=== PATIENT | male | born 1990 | race African-American/Black ===

== ENCOUNTER 2016-02-29 22:21 | Emergency (ER) | payer OTHER, SELFPAY ==
[2016-02-29] MEDS ORDERED: Lorazepam 2 MG/ML VIAL ONE (22:30)
--- NOTE | 2016-02-29 23:03 | ERRECORD ---
[facility] EMERGENCY RECORD HPI ANXIETY (22:30 [facility]) CHIEF COMPLAINT: Patient presents for evaluation of anxiety. HISTORIAN: History provided by patient, anxiety after being arrested. pt will be calm, then hyperventilate when spoken to. LOCATION: Symptoms are generalized. QUALITY: Patient is alert and oriented to person, place and time, Rajeev coma score is 15. SEVERITY: Maximum severity of symptoms mild, Currently symptoms are mild, Maximum severity of pain rated as 10/10, Current severity of pain rated as 10/10, no visible trauma or injury. TIME COURSE: Sudden onset of symptoms, just prior to arrival, Symptoms are improving. ASSOCIATED WITH: No associated symptoms. EXACERBATED BY: Patient's condition exacerbated by nothing. RELIEVED BY: Nothing tried for relief. ROS (22:33 [facility]) CONSTITUTIONAL: Negative constitutional review of systems. EYES: Negative eye review of systems. ENT: Negative ears, nose, throat review of systems. CARDIOVASCULAR: Negative cardiovascular review of systems. RESPIRATORY: Negative respiratory review of systems. GI: Negative gastrointestinal review of systems. GENITOURINARY MALE: Negative genitourinary review of systems. MUSCULOSKELETAL: Negative musculoskeletal review of systems. SKIN: Negative skin review of systems. NEUROLOGIC: Negative neurologic review of systems. ENDOCRINE: Negative endocrine review of systems. HEMO/LYMPHATIC: Normal hematologic/lymphatic system review. ALLERGIC/IMMUNOLOGIC: Normal allergy/immunologic system review. PSYCHIATRIC: Historian reports anxiety. NOTES: All systems reviewed, negative except as described above. PAST MEDICAL HISTORY (22:31 [facility]) MEDICAL HISTORY: , Past medical history includes pulmonary disease, asthma. MALE SURGICAL HISTORY: Patient has no surgical history. PSYCHIATRIC HISTORY: Psychiatric history includes, anxiety, depression, no previous inpatient psychiatric admissions, Notes: BIPOLAR PT NOT TAKING ANY MEDS, Psychiatric history includes, bipolar disorder, Notes: ADHD. SOCIAL HISTORY: Patient drinks socially, Patient currently uses drugs, abuses marijuana, Patient currently uses tobacco, smokes cigarettes, Occasional or some day smoker, Lives at home, with family. FAMILY HISTORY: Family history is non-contributory to this case. &a-1R&a+25V*p+0X*k0691K*c202B*c15G*c2P*p-0X&a-25V&a+1R Name: Kavin Castellanos : 1990 M25 MedRec: [id number] AcctNum: [id number] Prepared: SunMar 01, 2016 01:23 by Interface Page 1 of 3 pMD [facility] EMERGENCY RECORD KNOWN ALLERGIES No Known Drug Allergies CURRENT MEDICATIONS (22:27 [facility]) albuterol: AEROSOL (GRAM) : Strength - 90 mcg : INHALATION Patient Dose: Intranasal As Needed. VITAL SIGNS VITAL SIGNS: Temp: 98.8 (Oral), Pain: 10 (Constant), Time: 02/29/2016 22:23. (22:23 [facility]) BP: 117/74, Pulse: 71, Resp: 32 (Labored), O2 sat: 98 on Room Air, Time: 02/29/2016 22:28. (22:28 [facility]) PHYSICAL EXAM (22:33 [facility]) CONSTITUTIONAL: Vital signs reviewed, Respiratory rate, increased, appears voluntary. HEAD: Head exam normal. EYES: Eye exam normal. ENT: ENT exam normal. NECK: Neck exam normal. RESPIRATORY CHEST: Respiratory and chest exam normal. CARDIOVASCULAR: Cardiovascular assessment normal. ABDOMEN MALE: Abdominal exam normal. BACK: Back exam normal. UPPER EXTREMITY: Upper extremity exam normal. LOWER EXTREMITY: Lower extremity exam normal. NEURO: Rajeev coma scale 15, Neuro exam findings include patient oriented to person, place and time, Speech normal, Gait normal, Memory normal, Cranial nerves intact, Deep tendon reflexes normal. SKIN: Skin exam normal. LYMPHATIC: Lymphatic exam normal. PSYCHIATRIC: Psychiatric exam included findings of patient oriented to person place and time, Affect, anxious. MEDICATION ADMINISTRATION SUMMARY Drug Name: Ativan injection, Dose Ordered: 2 mg, Route: Intramuscular, Status: Given, Time: 22:33 02/29/2016, Detailed record available in Medication Service section. PROBLEM LIST No recorded problems DIAGNOSIS (22:30 [facility]) FINAL: PRIMARY: Anxiety. PRESCRIPTION No recorded prescriptions &a-1R&a+25V*p+0X*t3850H*c202B*c15G*c2P*p-0X&a-25V&a+1R Name: Kavin Castellanos : 1990 M25 MedRec: [id number] AcctNum: [id number] Prepared: SunMar 01, 2016 01:23 by Interface Page 2 of 3 pMD [facility] EMERGENCY RECORD DISPOSITION PATIENT: Disposition Type: Discharge, Disposition: *Discharge Home, Disposition Transport: Car, Condition: Improved. (22:30 KARLEE) Patient left the department. (22:42 [facility]) [place]: LIBRA=KIRILL Rene, Deepika CHING=MD Rito, Layton &a-1R&a+25V*p+0X*[id number]*c202B*c15G*c2P*p-0X&a-25V&a+1R Name: Kavin Castellanos : 1990 M25 MedRec: [id number] AcctNum: [id number] Prepared: SunMar 01, 2016 01:23 by Interface Page 3 of 3 pMD MTDD
--- NOTE | 2016-02-29 23:15 | PICIS ---
[facility] EMERGENCY RECORD TRIAGE (22:27 [facility]) PATIENT: NAME: Kavin Castellanos, AGE: 25, GENDER: male, : Sat 1990, TIME OF GREET: SunFeb 29, 2016 22:22, PREFERRED LANGUAGE: Sami, ETHNICITY: Not or , ECODE BILLING MAP: [facility] ER, SSN: [id number], Zip Code: [address], KG WEIGHT: 75.75 (est.), PHONE: , , , PERSON ID: [id number], PCP: none. (22:27 LK) TRIAGE NOTES: PT WAS ARRESTED TONIGHT WHICH CAUSED HIM TO HAVE A PANIC ATTACK. C/O CHEST TIGHTNESS AND DIFFICULTY BREATHING. EMS REPORTS PT WILL BE SPEAKING CLEARLY AND BREATHING NORMALLY AND THEN SWITCH INSTANTLY TO RAPID BREATHING AND DIFFICULTY SPEAKING. EMS REPORTS NSR. SPO2 100%. (22:27 LK) COMPLAINT: EMOTIONAL DISTRESS. (22:27 [facility]) ADMISSION: URGENCY: 3 Urgent, ADMISSION SOURCE: Home, TRANSPORT: AMBULANCE - [facility], BED: ER -05. (22:27 LK) ASSESSMENT: Symptoms began 02/29/2016 21:00. (22:31 [facility]) PAIN: Patient complains of pain described as, burning, Location CHEST, Pain is constant. (22:31 [facility]) IMMUNIZATIONS: Flu vaccine not up to date, Tetanus immunization up to date. (22:31 [facility]) SIRS SCORING: Heart Rate 55-109 (0), Temp range 96.8-101.1 (0), respiratory rate 12-24 (0), Mental Status altered: no (0). (22:31 [facility]) TRIAGE SCREENING: Patient denies suicidal ideation, Patient denies presence of domestic violence. (22:31 [facility]) TREATMENTS IN PROGRESS: Treatments given Prehospital: NONE. (22:31 [facility]) PROVIDERS: TRIAGE NURSE: Deepika Rene RN. (22:27 [facility]) VITAL SIGNS: Temp 98.8, (Oral), Pain 10, (Constant), Time 02/29/2016 22:23. (22:23 [facility]) BP 117/74, Pulse 71, Resp 32, (Labored), O2 Sat 98, on Room Air, Time 02/29/2016 22:28. (22:28 [facility]) PREVIOUS VISIT ALLERGIES: No Known Drug Allergies. (22:27 [facility]) No Known Drug Allergies. (22:31 [facility]) KNOWN ALLERGIES No Known Drug Allergies CURRENT MEDICATIONS (22:27 [facility]) albuterol: AEROSOL (GRAM) : Strength - 90 mcg : INHALATION Patient Dose: Intranasal As Needed. VITAL SIGNS VITAL SIGNS: Temp: 98.8 (Oral), Pain: 10 (Constant), Time: 02/29/2016 22:23. (22:23 [facility]) BP: 117/74, Pulse: 71, Resp: 32 (Labored), O2 sat: 98 on Room Air, Time: 02/29/2016 22:28. (22:28 [facility]) &a-1R&a+25V*p+0X*j6191U*c202B*c15G*c2P*p-0X&a-25V&a+1R Name: Kavin Castellanos : 1990 M25 MedRec: [id number] AcctNum: [id number] Prepared: SunMar 01, 2016 01:23 by Interface Page 1 of 5 pMD [facility] EMERGENCY RECORD NURSING ASSESSMENT: FOCUSED (22:30 [facility]) CONSTITUTIONAL: Complex assessment performed, Patient arrives, via stretcher, via Emergency [facility], History obtained from patient, Patient appears, anxious, Patient alert, Oriented to person, place and time, Skin warm, Skin dry, Skin normal in color, Mucous membranes pink, Mucous membranes moist, Patient is well-groomed, Patient complains of ANXIETY. PAIN: burning pain, CHEST TIGHTNESS, Onset of pain 02/28/2016 21:30, constant, on a scale 0-10 patient rates pain as 10, NSR PER EMS ON MONITOR. NEURO: Focused neuro assessment findings include patient alert, cooperative, No facial droop noted, Crying, No loss of consciousness. GCS: Eye opening: (4) - Spontaneous, Verbal: (5) - Oriented/conversive, Motor: (6) - Obeys commands/Spontaneous, GCS Total: 15. RESPIRATORY: Focused respiratory assessment findings include breath sounds clear, to bilateral upper lobes, to bilateral lower lobes. ABDOMEN: Focused abdominal assessment findings include abdomen soft, non tender, no complaint of nausea, no vomiting. GENITOURINARY: Focused genitourinary assessment not applicable. SAFETY: Side rails up, Cart/Stretcher in lowest position, Hospital ID band on, Patient in view of the nursing station, Additional security personnel at bedside, Law enforcement, PT IN POLICE CUSTODY. NURSING PROCEDURE: DISCHARGE NOTE (22:49 [facility]) DISCHARGE: Patient discharged in police custody, ambulating without assistance, transported via police, accompanied by law enforcement, Summary of Care printed/ provided, Discharge instructions given to patient, Simple or moderate discharge teaching performed, by KIRILL Poe, Above person(s) verbalized understanding of discharge instructions and follow-up care. BELONGINGS: Belongings and valuables with patient upon arrival to the Emergency Department include:, Belongings and valuables with patient at time of discharge include:, Belongings remain with patient, Valuables remain with patient. MEDICATION ADMINISTRATION SUMMARY Drug Name: Ativan injection, Dose Ordered: 2 mg, Route: Intramuscular, Status: Given, Time: 22:33 02/29/2016, Detailed record available in Medication Service section. MEDICATION SERVICE Ativan injection: Order: Ativan injection (lorazepam) - Dose: 2 mg : Intramuscular Schedule: Now &a-1R&a+25V*p+0X*p4806X*c202B*c15G*c2P*p-0X&a-25V&a+1R Name: Kavin Castellanos : 1990 M25 MedRec: [id number] AcctNum: [id number] Prepared: SunMar 01, 2016 01:23 by Interface Page 2 of 5 D [facility] EMERGENCY RECORD Ordered by: Layton Veras MD Entered by: Layton Veras MD Feb 29, 2016 22:29 , Acknowledged by: Deepika Rene RN shine Feb 29, 2016 22:31 Documented as given by: Mary Herrera RN SunFeb 29, 2016 22:33 Patient, Medication, Dose, Route and Time verified prior to administration. IM medication, Amount given: 2 MG, Administration of this medication is documented elsewhere in chart, Medication administered to left deltoid, Correct patient, time, route, dose and medication confirmed prior to administration, Patient advised of actions and side-effects prior to administration, Allergies confirmed and medications reviewed prior to administration, Patient in position of comfort, Side rails up, Cart in lowest position, [employer] Officer at bedside. : Follow Up : No signs or symptoms of allergic reaction noted, Decreased symptoms, Site inspection shows, No swelling at administration site, No drainage at administration site, No bleeding at site, No bruising noted at site. (22:49 [facility]) HPI ANXIETY (22:30 [facility]) CHIEF COMPLAINT: Patient presents for evaluation of anxiety. HISTORIAN: History provided by patient, anxiety after being arrested. pt will be calm, then hyperventilate when spoken to. LOCATION: Symptoms are generalized. QUALITY: Patient is alert and oriented to person, place and time, Rajeev coma score is 15. SEVERITY: Maximum severity of symptoms mild, Currently symptoms are mild, Maximum severity of pain rated as 10/10, Current severity of pain rated as 10/10, no visible trauma or injury. TIME COURSE: Sudden onset of symptoms, just prior to arrival, Symptoms are improving. ASSOCIATED WITH: No associated symptoms. EXACERBATED BY: Patient's condition exacerbated by nothing. RELIEVED BY: Nothing tried for relief. ROS (22:33 [facility]) CONSTITUTIONAL: Negative constitutional review of systems. EYES: Negative eye review of systems. ENT: Negative ears, nose, throat review of systems. CARDIOVASCULAR: Negative cardiovascular review of systems. RESPIRATORY: Negative respiratory review of systems. GI: Negative gastrointestinal review of systems. GENITOURINARY MALE: Negative genitourinary review of systems. MUSCULOSKELETAL: Negative musculoskeletal review of systems. SKIN: Negative skin review of systems. NEUROLOGIC: Negative neurologic review of systems. ENDOCRINE: Negative endocrine review of systems. HEMO/LYMPHATIC: Normal hematologic/lymphatic system review. ALLERGIC/IMMUNOLOGIC: Normal allergy/immunologic system review. PSYCHIATRIC: Historian reports anxiety. &a-1R&a+25V*p+0X*q4283F*c202B*c15G*c2P*p-0X&a-25V&a+1R Name: Kavin Castellanos : 1990 M25 MedRec: [id number] AcctNum: [id number] Prepared: SunMar 01, 2016 01:23 by Interface Page 3 of 5 pMD [facility] EMERGENCY RECORD NOTES: All systems reviewed, negative except as described above. PAST MEDICAL HISTORY (22:31 [facility]) MEDICAL HISTORY: , Past medical history includes pulmonary disease, asthma. MALE SURGICAL HISTORY: Patient has no surgical history. PSYCHIATRIC HISTORY: Psychiatric history includes, anxiety, depression, no previous inpatient psychiatric admissions, Notes: BIPOLAR PT NOT TAKING ANY MEDS, Psychiatric history includes, bipolar disorder, Notes: ADHD. SOCIAL HISTORY: Patient drinks socially, Patient currently uses drugs, abuses marijuana, Patient currently uses tobacco, smokes cigarettes, Occasional or some day smoker, Lives at home, with family. FAMILY HISTORY: Family history is non-contributory to this case. PHYSICAL EXAM (22:33 [facility]) CONSTITUTIONAL: Vital signs reviewed, Respiratory rate, increased, appears voluntary. HEAD: Head exam normal. EYES: Eye exam normal. ENT: ENT exam normal. NECK: Neck exam normal. RESPIRATORY CHEST: Respiratory and chest exam normal. CARDIOVASCULAR: Cardiovascular assessment normal. ABDOMEN MALE: Abdominal exam normal. BACK: Back exam normal. UPPER EXTREMITY: Upper extremity exam normal. LOWER EXTREMITY: Lower extremity exam normal. NEURO: Lawson coma scale 15, Neuro exam findings include patient oriented to person, place and time, Speech normal, Gait normal, Memory normal, Cranial nerves intact, Deep tendon reflexes normal. SKIN: Skin exam normal. LYMPHATIC: Lymphatic exam normal. PSYCHIATRIC: Psychiatric exam included findings of patient oriented to person place and time, Affect, anxious. EVENTS TRANSFER: Triage to Emergency Emergency Room -05. (SunFeb 29, 2016 22:27 [facility]) Removed from Emergency Emergency Room -05. (22:42 [facility]) PROBLEM LIST No recorded problems DIAGNOSIS (22:30 [facility]) FINAL: PRIMARY: Anxiety. &a-1R&a+25V*p+0X*b5937T*c202B*c15G*c2P*p-0X&a-25V&a+1R Name: Kavin Castellanos : 1990 M25 MedRec: [id number] AcctNum: [id number] Prepared: SunMar 01, 2016 01:23 by Interface Page 4 of 5 pMD [facility] EMERGENCY RECORD DISPOSITION PATIENT: Disposition Type: Discharge, Disposition: *Discharge Home, Disposition Transport: Car, Condition: Improved. (22:30 RW) Patient left the department. (22:42 [facility]) INSTRUCTION (22:30 R[facility]) DISCHARGE: ANXIETY REACTION. FOLLOWUP: Follow up with Primary Care Physician as needed. SPECIAL: Follow-up with your PCP. PRESCRIPTION No recorded prescriptions IMAGING *EKG: Image captured from scanner. (22:28 MU) RETURN TO DETENTION: Image captured from scanner. (22:39 MU) *SUPPLY CHARGE SHEET: Image captured from scanner. (22:41 MU) *DISCHARGE INSTRUCTIONS RECEIPT: Image captured from scanner. (23:53 [facility]) ADMIN (SunMar 01, 2016 01:22 [facility]) DIGITAL SIGNATURE: MD Rito, Layton. [place]: MU=KIRILL Herrera, Mary [facility]=KIRILL Rene, Deepika [facility]=MD Veras Richard &a-1R&a+25V*p+0X*t6199F*c202B*c15G*c2P*p-0X&a-25V&a+1R Name: Kavin Castellanos : 1990 M25 MedRec: [id number] AcctNum: [id number] Prepared: SunMar 01, 2016 01:23 by Interface Page 5 of 5 pMD MTDD
== END 2016-02-29 22:49 ==
LOC: NAV ERS 22:21
DX: F41.9 Anxiety disorder, unspecified (principal); J45.909 Unspecified asthma, uncomplicated; F31.9 Bipolar disorder, unspecified; F90.9 Attention-deficit hyperactivity disorder, unspecified type; Z72.0 Tobacco use
CPT/HCPCS: 96372; J2060

== ENCOUNTER 2016-03-20 19:20 | Emergency (ER) | payer SELFPAY ==
[2016-03-20] MEDS ORDERED: cefTRIAXone\\ROCEPHIN 1 GM VIAL ONE (19:29)
[2016-03-20] MEDS ORDERED: Lidocaine 1% 20 ML MDV ONE (19:29)
== END 2016-03-20 19:50 | disposition home or self-care (01) ==
LOC: NAV ERS 19:20
DX: L03.116 Cellulitis of left lower limb (principal); J45.909 Unspecified asthma, uncomplicated; F31.9 Bipolar disorder, unspecified; F90.9 Attention-deficit hyperactivity disorder, unspecified type; F17.210 Nicotine dependence, cigarettes, uncomplicated; Z79.899 Other long term (current) drug therapy
CPT/HCPCS: 96372; J0696; J2001

== ENCOUNTER 2016-11-05 13:15 | Emergency (ER) | payer SELFPAY ==
[2016-11-05] MEDS ORDERED: Lidocaine 1% w/Epinephrine 1:100K 20 ML VIAL ONE (13:21)
[2016-11-05] MEDS ORDERED: Sodium Chloride 0.9% 1,000 ML ONE (14:17)
[2016-11-05] MEDS ORDERED: Bacitracin Zinc 1 Packet ONE (15:15)
--- NOTE | 2016-11-05 16:03 | RAD ---
RADIOGRAPH LEFT HAND 3 VIEWS: Date: 11/05/16 HISTORY: 25-year-old male status post traumatic laceration of the left hand. FINDINGS: There is no fracture, dislocation, or any other osseous abnormality. There are dressings overlying t he ulnar side of the dorsum of the hand. No radiopaque foreign body is visualized. IMPRESSION: 1. Laceration of ulnar side of dorsum of the hand. 2. No fracture. POS: [facility]
== END 2016-11-05 15:35 | disposition home or self-care (01) ==
LOC: NAV ERS 13:15
DX: S61.412A Laceration without foreign body of left hand, initial encounter (principal); J45.909 Unspecified asthma, uncomplicated; F41.9 Anxiety disorder, unspecified; F90.9 Attention-deficit hyperactivity disorder, unspecified type; F31.9 Bipolar disorder, unspecified; Z87.891 Personal history of nicotine dependence; W26.0XXA Contact with knife, initial encounter
CPT/HCPCS: 12042; J2001; J7050

== ENCOUNTER 2016-11-08 10:24 | Emergency (ER) | payer SELFPAY ==
[2016-11-08] MEDS ORDERED: Sulfameth/Trimethoprim DS 800-160mg TAB ONE (10:44)
[2016-11-08] MEDS ORDERED: cefTRIAXone\\ROCEPHIN 1 GM VIAL ONE (10:45)
[2016-11-08] MEDS ORDERED: Lidocaine 1% 20 ML MDV ONE (10:45)
== END 2016-11-08 11:18 | disposition home or self-care (01) ==
LOC: NAV ERS 10:24
DX: T81.4XXA Infection following a procedure, initial encounter (principal); J45.909 Unspecified asthma, uncomplicated; I10 Essential (primary) hypertension; F41.9 Anxiety disorder, unspecified; F31.9 Bipolar disorder, unspecified; F90.9 Attention-deficit hyperactivity disorder, unspecified type; Z87.891 Personal history of nicotine dependence; Z79.891 Long term (current) use of opiate analgesic; Z79.899 Other long term (current) drug therapy
CPT/HCPCS: 87070; 87077; 87186; 87205; 96372; J0696; J2001

== ENCOUNTER 2016-11-15 14:23 | Emergency (ER) | payer SELFPAY ==
[2016-11-15] MEDS ORDERED: Bacitracin Zinc 1 Packet ONE (14:41)
== END 2016-11-15 14:40 | disposition home or self-care (01) ==
LOC: NAV ERS 14:23
DX: S61.412D Laceration without foreign body of left hand, subsequent encounter (principal); J45.909 Unspecified asthma, uncomplicated; F41.9 Anxiety disorder, unspecified; F31.9 Bipolar disorder, unspecified; F90.9 Attention-deficit hyperactivity disorder, unspecified type; Z87.891 Personal history of nicotine dependence

== ENCOUNTER 2017-04-15 14:13 | Emergency (ER) | payer SELFPAY ==
--- NOTE | 2017-04-15 15:06 | RAD ---
RIGHT ELBOW 2 VIEWS: Date: 04/15/17 PROVIDED CLINICAL HISTORY: Right elbow pain status post injury. FINDINGS: There is subtle cortical disruption suspected involving the radial aspect of the radial head on the f rontal view. No additional potential fracture is identified. Minimal joint effusion may be present. A lignment appears anatomic. IMPRESSION: Findings suspicious for nondisplaced radial head fracture. POS: [facility]
== END 2017-04-15 14:51 | disposition home or self-care (01) ==
LOC: NAV ERS 14:13
DX: S52.124A Nondisplaced fracture of head of right radius, initial encounter for closed fracture (principal); I10 Essential (primary) hypertension; J45.909 Unspecified asthma, uncomplicated; F41.9 Anxiety disorder, unspecified; F31.9 Bipolar disorder, unspecified; F90.9 Attention-deficit hyperactivity disorder, unspecified type; F17.210 Nicotine dependence, cigarettes, uncomplicated; W17.89XA Other fall from one level to another, initial encounter; Y93.44 Activity, trampolining; Y92.831 Amusement park as the place of occurrence of the external cause
CPT/HCPCS: 24650

== ENCOUNTER 2018-03-23 02:27 | Emergency (ER) | payer SELFPAY ==
[2018-03-23 03:27] LABS: #Eosinphils 0.3 thou/uL (0.0-0.7); #Lymphocytes 1.7 thou/uL (1.20-3.40); #Monocytes 0.9 thou/uL (0.11-0.59); #Neutrophils 4.3 thou/uL (1.40-6.50); %Basophils 0.6 % (0.0-1.0); %Eosinophils 4.6 % (0.0-10.0); %Lymphocytes 23.2 % (21.0-51.0); %Monocytes 12.9 % (0.0-10.0); %Neutrophils 58.7 % (42.0-75.0); MDiff Complete? YES; Mean Corpuscular HGB CONC 30.8 g/dL (32.0-36.0); Mean Corpuscular Hemoglobin 24.4 pg (27.0-31.0); Mean Corpuscular Volume 79.2 fL (78.0-98.0); Mean Platelet Volume 8.2 fL (7.4-10.4); Ovalocytes SLIGHT = 2-5 cells (100X) (0-1/hpf); Platelet Count 227 thou/uL (130-400); Platelet Morphology Comment Appears Adequate; RBC Distribution Width 12.9 % (11.5-14.5); Red Blood Cell (RBC) Count 4.94 mill/uL (4.70-6.10); Target Cells SLIGHT = 2-5 cells (100X) (0-1/hpf); Tear Drops SLIGHT = 2-5 cells (100X) (0-1/hpf); White Blood Cell (WBC) Count 7.3 thou/uL (4.8-10.8)
[2018-03-23 03:30] LABS: ALT (SGPT) 37 U/L (8-55); AST (SGOT) 27 U/L (5-34); Albumin 3.9 g/dL (3.5-5.0); Alkaline Phosphatase 64 U/L (40-150); Anion Gap 13 mmol/L (10-20); BUN (Urea Nitrogen) 17 mg/dL (8.9-20.6); Bilirubin, Total 0.2 mg/dL (0.2-1.2); Calc. Creatinine Clearance 0 mL/min (70-130); Calcium 9.4 mg/dL (7.8-10.44); Carbon Dioxide 22 mmol/L (22-29); Chloride 107 mmol/L (98-107); Estimated GFR-MDRD Greater than 90; Globulin 2.4 g/dL (2.4-3.5); Glucose 86 mg/dL (70-105); Potassium 3.9 mmol/L (3.5-5.1); Protein, Total 6.3 g/dL (6.0-8.3); Sodium 138 mmol/L (136-145)
[2018-03-23 03:45] LABS: Bilirubin Negative (Negative); Blood, Urine Negative (Negative); Clarity Clear (Clear); Glucose, Urine (Dipstick) Negative (Negative); Leukocyte Negative (Negative); Nitrite Negative (Negative); Protein, Urine (Dipstick) Negative (Neg-Trace); Specific Gravity, Urine 1.025 (1.005-1.030); Urobilinogen 0.2 mg/dL (0.2-1.0)
[2018-03-23 03:55] LABS: Amphetamine Detected (NotDetected); Barbiturates Screen Not Detected (NotDetected); Benzodiazepine Screen Not Detected (NotDetected); Cocaine Metabolite Screen Not Detected (NotDetected); Medtox Control Line Valid? VALID (VALID); Methadone Not Detected (NotDetected); Methamphetamine Detected (NotDetected); Opiate Screen Not Detected (NotDetected); Oxycodone Screen Not Detected (NotDetected); Phencyclidine (PCP) Not Detected (NotDetected); THC/Cannabinoid Screen Detected (NotDetected); Tricyclic Screen Not Detected (NotDetected)
== END 2018-03-23 04:35 ==
LOC: NAV ERS 02:27
DX: F12.10 Cannabis abuse, uncomplicated (principal); F41.9 Anxiety disorder, unspecified; F31.9 Bipolar disorder, unspecified; F90.9 Attention-deficit hyperactivity disorder, unspecified type; F17.210 Nicotine dependence, cigarettes, uncomplicated
CPT/HCPCS: 36415; 80053; 80306; 81003; 85025; 99284